=== PATIENT | male | born 1940 | race Caucasian/White ===

== ENCOUNTER 2018-12-25 13:16 | Inpatient (IN) ==
[2018-12-25] MEDS ORDERED: ONDANSETRON INJ 2 MG/ML 2 ML VIAL IV PRN (14:48)
[2018-12-25] MEDS ORDERED: ACETAMINOPHEN 325 MG TAB PO PRN (14:48)
[2018-12-25] MEDS ORDERED: SODIUM CHLORIDE 0.9% 500 ML IV SCH (19:30)
[2018-12-25 19:36] LABS: Hematocrit (blood only) 35.5 % (42-52); Hemoglobin 12.3 g/dL (14.0-18.0); INR 1.1 (0.9-1.1); Mean Corpuscular Hgb Conc 34.6 g/dL (32-36); Mean Corpuscular Volume 89.2 fL (80-100); Mean Platelet Volume 9.4 fL (7.4-10.4); Platelet Count 231 K/uL (130-400); RDW Coefficient of Variation 13.9 % (11.5-14.5); Red Blood Count 3.98 M/uL (4.7-6.1); White Blood Count 6.85 K/uL (4.8-10.8)
[2018-12-25 19:46] LABS: BUN Creatinine Ratio 25.4 (10-20); Calcium 9.3 mg/dl (8.5-10.1); Creatinine Clr Calc Pharmacy 26.2 ml/min; Est GFR (African American) 26.2; Est GFR (Non-African American) 22.6; Potassium 5.6 mmol/L (3.5-5.1)
[2018-12-25] MEDS ORDERED: SODIUM POLYSTYRENE SULFONATE 30 GM/120 ML UDP PO ONE (20:19)
[2018-12-25] MEDS ORDERED: IPRATROPIUM BROMIDE/ALBUTEROL respimat INH INH PRN (21:02)
--- NOTE | 2018-12-25 21:02 | History & Physical Report ---
Date of Service December 25, 2018 Assessment & Plan (1) Hyperkalemia: Patient hyperkalemia is likely based on his RATNA inhibitor spironolactone diuretic therapy. His medications suggest he has a component of heart failure were unclear whether systolic or diastolic. Subsequently we will treat his hyperkalemia with Kayexalate as it was repeated 5.6 there is no acute currents or changes on EKG that would suggest he is having any cardiac related issues nor does he have any arrhythmia. His blood pressure slightly low and will be given 500 cc of fluid overnight. We will repeat potassium in the morning. If his potassium is sluggish has been and creatinine are sluggish to improve we can consider doing a renal ultrasound to look for extrinsic renal issues however this is likely medicine related (2) Hypertension: As mentioned RATNA inhibitor and diuretics are being held at this time, will continue aspirin and Plavix his blood pressure is low so we will not add any augmented blood pressure (3) Chronic obstructive pulmonary disease: Patient suffers of COPD he does not use oxygen he seems to be stable at this point in time. Continue supplement oxygen and use inhaled medicines as needed (4) History of heart artery stent: Patient is maintained on aspirin and Plavix. He typically takes atenolol although his heart rate is slightly bradycardic at this time. He also takes Ranexa but his blood pressure is low these are all being held History of Present Illness Primary Care Provider: Luis Manuel Nichols Patient is a transfer from [address] [place] [address] because of hyperkalemia in the ER. According to the ER physician the patient did not have any acid-base balance is other than the hyperkalemia he did slightly worsening of his creatinine he had no problems with volume control such as heart failure or peripheral edema is oxygenating well and in no acute current of injury on his EKG. According to the ER provider the hospitalist there did not wish to admit the patient to the facility due to lack of nephrology coverage over the weekend I informed the ER provider that I was not even sure I would need nephrology coverage to manage this patient however he says he had no other options as the hospital is a do [facility] were refusing to admit this patient I asked the ER provider to administer the typical hyperkalemia work-up treatment however upon arrival the patient does not feel he received any Kayexalate orally Potassium on presentation in our facility was 5.6 Patient himself says he feels well he only presented to the hospital because of outpatient labs drawn by his primary care provider Allergies Allergy/AdvReac Type Severity Reaction Status Date / Time No Known Allergies Allergy Unverified 04/11/16 11:31 Home Medications Home Medications Medication Instructions Recorded Confirmed Type ASPIRIN (ASPIRIN 81) 1 tab PO DAILY #0 04/11/16 History Atenolol (Tenormin) 25 mg PO DAILY #0 tab 04/11/16 History Clopidogrel (Plavix) 75 mg PO DAILY #0 tab 04/11/16 History Escitalopram Oxalate (Lexapro) 20 mg PO DAILY #0 tab 04/11/16 History Fish Oil ([place]-3) 2 cap PO DAILY #0 cap 04/11/16 History Furosemide (Lasix) 40 mg PO DAILY #0 tab 04/11/16 History Lisinopril (Zestril) 5 mg PO DAILY #0 tab 04/11/16 History Nitroglycerin (Nitrostat) 0.4 mg UT PRN PRN #0 btl 04/11/16 History RANOLAZINE (RANEXA) 1 tab PO BID 90 Days #180 tab 04/11/16 History Simvastatin (Zocor) 20 mg PO QPM #0 tab 04/11/16 History Past Med/Surg History Medical History Anxiety Carotid artery stenosis Chronic kidney disease Congestive heart failure GERD (gastroesophageal reflux disease) Hearing deficit Hyperlipidemia Myocardial Infarction On home oxygen therapy Osteoarthritis Valvular heart disease Surgical History History of cardiac cath S/P trigger finger release Social History Preferred Language: Tajik Communication Ability: Effective Fuse Cutter Required: No Beliefs That Will Affect Care: None Current Living Situation: Spouse Other Information That Helps Us Care for You: No Feels Safe at Home: Yes Safety Concerns: Feels Safe At This Time Smoking Status: Former smoker Hx Alcohol Use: No Hx Substance Use: No Review of Systems Review of Systems: ROS: well nourished well developed. No double vision blurry vision No problems with speech or swallowing No palpitations, chest pain or pressure No Wheezing or breathing issues No abdominal pain nausea vomiting diarrhea changes in appetite or weight No burning urine urine frequency or changes in color No focal joint pain or muscle pain No skin rashes or oral lesions No unusual bruising or bleeding No focused back pain or numbness or loss of strength No changes in memory or confusion Physical Exam Physical Exam: The patient appeared well nourished and normally developed. Vital signs as documented. Head exam is unremarkable. normocephalic, atraumatic Neck is without jugular venous distension, thyromegaly, or lymphademopathy Lungs are clear to auscultation and percussion. Cardiac exam reveals Rhythm is regular. Although he is in atrial fibrillation systolic ejection murmur is heard Abdominal exam reveals normal bowel sounds, no masses, no organomegaly Extremities are nonedematous and both pedal pulses are present Neurologic exam is A&Ox3, no focal deficits, strength is equal bilateral Psychologically seems neither anxious or depressed Skin is warm Dry without bruises or lesions Results & Data Vital Signs (Past 12 Hours) Vital Signs Temp Pulse Resp BP Pulse Ox 12/25/18 19:08 36.6 C 56 L 20 88/50 L 92 12/25/18 18:35 36.5 C 58 L 18 97/51 L 96
[2018-12-25] MEDS ORDERED: SODIUM POLYSTYRENE SULFONATE 15G/60ML SUSP PO ONE (21:30)
[2018-12-25] MEDS: HEPARIN SOD 5,000 UNIT/0.5 ML VIAL SQ SCH (21:41)
[2018-12-26 06:33] LABS: Creatinine Clr Calc Pharmacy 26.1 ml/min; Est GFR (African American) 26.1; Est GFR (Non-African American) 22.5
[2018-12-26] MEDS ORDERED: SODIUM POLYSTYRENE SULFONATE 15G/60ML SUSP PO STA (06:53)
[2018-12-26] MEDS: ASPIRIN 81 MG ECTAB PO SCH (08:03)
[2018-12-26] MEDS: ESCITALOPRAM OXALATE 20 MG TAB PO SCH (08:03)
[2018-12-26] MEDS: CLOPIDOGREL BISULFATE 75 MG TAB PO SCH (08:03)
[2018-12-26] MEDS: HEPARIN SOD 5,000 UNIT/0.5 ML VIAL SQ SCH ×2 (08:03→20:22)
--- NOTE | 2018-12-26 10:51 | Family Medicine Progress Note ---
Date of Service December 26, 2018 Assessment & Plan (1) Hyperkalemia: Hyperkalemia * Patient with hyperkalemia 5.6 on admission down to 4.7 this afternoon. * Most likely due to aldosterone inhibition by spironolactone * Holding spironolactone and lisinopril * Received kayexalate on arrival, will hold further [place]ol[place] exalate * Will recheck BMP tomrrow morning. Acute kidney injury * Creatinine of 2.41 today, uknown what his baseline creatinine is * holding lisinopril, spironolactone and lasix for now * Called [facility] unable to obtain records until office hours on Friday. CHF * Patient with brittle CHF, hospitalized two weeks ago for CHF exacerbation with fluid overload * Will monitor carefully and diurese if patient begins to show signs of fluid overload * appears euvolemic at this time. (2) Hypertension: (3) History of heart artery stent: (4) Acute bronchitis: (5) Chronic obstructive pulmonary disease: Supervising Physician Co-Signing Physician Notes I personally examined the patient and verified all rubin points of history and exam, discussed case, and agree with decision making with Dr Hubbard. Feeling okay. Is starting to have bowel movements related to the Kayexalate. Updated patient and family extensively, to the best my ability, and to their satisfaction. Vitals noted, in general he is awake and alert pleasant no distress. HEENT normocephalic atraumatic mucous membranes moist. Breathing is unlabored no accessory muscle use good effort. Skin shows no rashes no pallor or icterus. Hyperkalemiaseems most likely spironolactone plus or minus effect of lisinopril. Until old labs arrive cannot entirely rule out volume contraction related to the Lasix contributing, but he appears euvolemic not very dry. Kayexalate seems to be helping, I anticipate his K to be improving. Given that he did have extremely mild peaked T waves on EKG, we will repeat a potassium this evening to ensure it is trending in the right direction. Congestive heart failureby history it sounds like chronic systolic, but not clear. Asked for his last hospital discharge summary. Obviously we will need to have the spironolactone on hold, and we may need to have his PCP/primary cognos bi administrator work on what the replacement would be, but if records are obtainable, then we may be able to make recommendations such as increasing the lisinopril, initiating Entresto, or other. Currently we will continue to watch carefully, if he starts to show any signs or symptoms of volume overload/pulmonary edema we can certainly initiate Lasix. Elevated creatinineuncertain if this is his baseline or a new elevation related to his suggested congestive heart failure medicines. We asked for records from [facility]. Certainly he appears euvolemic so there is no emergency to management even if his creatinine is deflected from his baseline. otherwise as above Subjective Mr. Chavez is feeling well this morning, he has no shortness of breath outside of his usual and is on his home level of supplemental oxygen. He is anxious to leave the hospital as soon as possible. Talked with as well, she is very anxious and appears to be on edge of tears. She tells me they were just in hospital recently for a CHF exacerbation and that he had never had an issue with potassium before to her knowledge. Review of Systems Constitutional: no fever, no chills and no fatigue Respiratory: no cough, no dyspnea and no wheezing Cardiovascular: no chest pain, no dyspnea, no dyspnea on exertion, no palpitations, no lightheadedness, no syncope and no calf pain Gastrointestinal: no abdominal pain, no nausea and no vomiting Musculoskeletal: no back pain, no neck pain, no joint pain and no muscle weakness Neurologic: no falls and no localized weakness Physical Exam Constitutional: no acute distress, not ill appearing and no altered mental status Eyes: PERRL, conjunctivae normal, anicteric sclerae ENMT: external ear and nose normal, oropharynx normal Neck: normal visual inspection Respiratory: normal respiratory effort, lungs clear to auscultation Auscultation: no crackles, no rales, no rhonchi and no wheezes Cardiovascular: Rate/Rhythm: regular rate and regular rhythm Vessels: normal peripheral pulses Extremities: no calf tenderness and no edema Gastrointestinal (Abdomen): normal bowel sounds, soft, nontender, no hepatosplenomegaly Neurologic: PERRL, EOMI, accommodation nl, no face palsy, no dysarthria Results & Data Vital Signs (Past 12 Hours) Vital Signs Temp Pulse Pulse Resp BP BP Pulse Ox 12/26/18 08:00 55 L 12/26/18 07:07 36.6 C 60 18 103/51 L 96 05/04/19 03:39 36.9 C 63 18 88/49 L 97 12/25/18 22:55 36.7 C 55 L 18 86/49 L 95 Resident Activity Tracking Resident Involvement: Resident Care Provided Care Provided: Adult Hospital Medicine
[2018-12-26] MEDS ORDERED: AMBRISENTAN PO SCH (13:00)
[2018-12-26 16:26] LABS: BUN Creatinine Ratio 27.2 (10-20); Calcium 8.7 mg/dl (8.5-10.1); Creatinine Clr Calc Pharmacy 28.6 ml/min; Est GFR (African American) 29.1; Est GFR (Non-African American) 25.1; Potassium 4.7 mmol/L (3.5-5.1)
[2018-12-27 06:41] LABS: Hematocrit (blood only) 32.7 % (42-52); Hemoglobin 11.2 g/dL (14.0-18.0); Mean Corpuscular Hgb Conc 34.3 g/dL (32-36); Mean Corpuscular Volume 89.6 fL (80-100); Mean Platelet Volume 9.8 fL (7.4-10.4); Platelet Count 186 K/uL (130-400); RDW Standard Deviation 45.1 fL (36.4-46.3); Red Blood Count 3.65 M/uL (4.7-6.1); White Blood Count 4.79 K/uL (4.8-10.8)
[2018-12-27 07:18] LABS: Calcium 8.5 mg/dl (8.5-10.1); Creatinine Clr Calc Pharmacy 36.1 ml/min; Est GFR (African American) 38.6; Est GFR (Non-African American) 33.3; Potassium 4.3 mmol/L (3.5-5.1)
[2018-12-27] MEDS: HEPARIN SOD 5,000 UNIT/0.5 ML VIAL SQ SCH (07:56)
[2018-12-27] MEDS: ASPIRIN 81 MG ECTAB PO SCH (07:59)
[2018-12-27] MEDS: CLOPIDOGREL BISULFATE 75 MG TAB PO SCH (08:00)
[2018-12-27] MEDS: ESCITALOPRAM OXALATE 20 MG TAB PO SCH (08:00)
--- NOTE | 2018-12-27 17:39 | Discharge Summary ---
Date of Service December 27, 2018 Admission HPI Per Admitting Provider Patient is a transfer from [facility] because of hyperkalemia in the ER. According to the ER physician the patient did not have any acid-base balance is other than the hyperkalemia he did slightly worsening of his creatinine he had no problems with volume control such as heart failure or peripheral edema is oxygenating well and in no acute current of injury on his EKG. According to the ER provider the hospitalist there did not wish to admit the patient to the facility due to lack of nephrology coverage over the weekend I informed the ER provider that I was not even sure I would need nephrology coverage to manage this patient however he says he had no other options as the hospital is a [facility] were refusing to admit this patient I asked the ER provider to administer the typical hyperkalemia work-up treatment however upon arrival the patient does not feel he received any Kayexalate orally Potassium on presentation in our facility was 5.6 Patient himself says he feels well he only presented to the hospital because of outpatient labs drawn by his primary care provider Principal Diagnosis hyperkalemia Discharge Exam Constitutional no acute distress, not ill appearing and no altered mental status Eyes PERRL, conjunctivae normal, anicteric sclerae ENMT external ear and nose normal, oropharynx normal Neck normal visual inspection Respiratory normal respiratory effort, lungs clear to auscultation Auscultation: no crackles, no rales, no rhonchi and no wheezes Cardiovascular Rate/Rhythm: regular rate and regular rhythm Vessels: normal peripheral pulses Extremities: no calf tenderness and no edema Gastrointestinal (Abdomen) normal bowel sounds, soft, nontender, no hepatosplenomegaly Neurologic PERRL, EOMI, accommodation nl, no face palsy, no dysarthria Discharge Data Allergies Allergy/AdvReac Type Severity Reaction Status Date / Time No Known Allergies Allergy Unverified 04/11/16 11:31 Consultations 12/25/18 14:49 Consult Case Management - Discharge Planning Routine 12/26/18 11:44 Consult Health Information Management Routine 12/27/18 12:36 Consult [facility] collection development librarian Routine Hospital Course (1) Hyperkalemia: Hyperkalemia * Patient with hyperkalemia 5.6 on admission down to 4.7 this afternoon. * Most likely due to aldosterone inhibition by spironolactone * Holding spironolactone and lisinopril * Received kayexalate on arrival, will hold further [place] exalate * Will recheck BMP tomrrow morning. Acute kidney injury * Creatinine of 2.41 today, uknown what his baseline creatinine is * holding lisinopril, spironolactone and lasix for now * Called [facility] unable to obtain records until office hours on Friday. CHF * Patient with brittle CHF, hospitalized two weeks ago for CHF exacerbation with fluid overload * Will monitor carefully and diurese if patient begins to show signs of fluid overload * appears euvolemic at this time. (2) Hypertension: (3) History of heart artery stent: (4) Acute bronchitis: (5) Chronic obstructive pulmonary disease: Total Time Total Time Spent Total Time Spent (In Minutes): >30 Discharge Plan Discharge Items Patient Disposition: Home - Self-Care Reason For Visit: HYPERKALEMIA Discharge Diagnosis: Hyperkalemia (Resolved) Congestive Heart Failure Condition: Good Discharge Goals: Improve disease control Activity: Resume your previous activity Non-emergency contact: Primary Care Provider Call non-emergency contact if: you have any medication questions and your symptoms worsen Follow-up/Referrals: Luis Manuel Nichols [Primary Care Provider] - Diet: Heart Healthy Add Provider Instructions: Mr. Chavez, it was our pleasure to treat you here at [facility] for your hyperkalemia ( High Potassium). We believe the cause of your high potassium was a medication that you are on for your heart, spironolactone. We held that medication while you were here in the hospital and watched you closely while your potassium returned to normal. We also held your lisinopril (blood pressure medication) while you were here because it can also affect kidney function and your blood pressure was well controlled (even on the lower end). We also held your lasix (furosemide, fluid pill) because you were a little bit dry. We will want you to follow up early next week with Dr. Nichols for further monitoring of your blood pressure and fluid status. In the mean time we will make the following changes: LASIX (FUROSEMIDE) Decreasing from 40 mg daily down to 20 mg daily (1/2 pill) SPIRONOLACTONE: STOP TAKING LISINOPRIL: STOP TAKING UNTIL MEETING WITH DR. NICHOLS To prevent future chf exacerbations or becoming fluid overloaded it would be in your best interest to consume less than 2000mg of sodium per day. This information can be found on any packaged food. Things like soup and preserved meats can have very high sodium levels. Try to avoid more than 400 mg in a single meal. Prescriptions: Continued ASPIRIN (ASPIRIN 81) 81 MG tablet 1 tab PO DAILY Qty: 0 RF: 0 Atenolol (Tenormin) 50 MG tablet 25 mg PO DAILY Qty: 0 RF: 0 Clopidogrel (Plavix) 75 MG tablet 75 mg PO DAILY Qty: 0 RF: 0 Escitalopram Oxalate (Lexapro) 20 MG tablet 20 mg PO DAILY Qty: 0 RF: 0 Fish Oil ([place]-3) 1 EA capsule 2 cap PO DAILY Qty: 0 RF: 0 Nitroglycerin (Nitrostat) 0.4 MG tablet 0.4 mg UT PRN PRN (Reason: Chest Pain) Qty: 0 RF: 0 RANOLAZINE (RANEXA) 500 MG tablet 1 tab PO BID 90 Days Qty: 180 RF: 3 Simvastatin (Zocor) 20 MG tablet 20 mg PO QPM Qty: 0 RF: 0 Changed Furosemide (Lasix) 40 MG tablet 20 mg PO DAILY Qty: 0 RF: 0 Discontinued Lisinopril (Zestril) 5 MG tablet 5 mg PO DAILY Qty: 0 RF: 0 Stand-Alone Forms: [facility] [facility]/Other Patient Handouts: Heart Failure Warning Signs, Heart Failure Tracking Weight, Heart Failure Being Active, Heart Failure Coping, Heart Failure Diet Changes Discharge Orders: Discharge Order (Routine); Ordered 12/27/18 Ordered By: Lv Hubbard Admission Data Admit Date/Time: 12/25/18 17:48 Attending Provider: Tyler Lanier Admit Provider: Peter English Primary Care Provider: Luis Manuel Nichols Other Providers: Peter English Service: Telemetry Other Interventions: Discharge Summary Assessment (RN) Last Done: 12/27/18 13:09 Pending Studies at Discharge: No DC Date/Time DO NOT enter until pt leaves facility: 12/27/18 13:21 Supervising Physician Co-Signing Physician Notes I personally examined the patient and verified all rubin points of history and exam, discussed case, and agree with decision making with Dr Hubbard. Feeling good. Breathing okay. Would like to go home. Extensive discussions about not only hyperkalemia, but also CHF including home monitoring (Daily weights and following respiratory symptoms) and prevention of exacerbation specifically focusing on sodium restriction. He seemed entirely unaware of any of this. Was quite appreciative of the information. Vitals noted, in general he is awake and alert pleasant no distress. HEENT normocephalic atraumatic mucous members moist. Lungs show very faint bibasilar rales probably more right than left at the bottom only, lungs are otherwise clear without any other rales rhonchi or wheezes good effort no accessory muscle use. Labs noted Hyperkalemiaseems most likely spironolactone plus or minus effect of lisinopril. Given the improvement of his creatinine after a little bit of IV fluid and holding off on Lasix, he also likely had a degree of volume contraction. Now stable for home. Continue to withhold spironolactone and lisinopril for now, likely spironolactone indefinitely, outpatient follow-up with his PCP and template inspector. Records did not arrive in terms of his type of congestive heart failure, so specific recommendations could not be made on replacing the spironolactone, but assuming he has a low EF, one could consider discontinuing the lisinopril as well and utilizing sacubitril/valsartan. Congestive heart failuresee above. Clinically overall stable, very faint rales, but otherwise appears to be a bit volume contracted. Records did not arrive but he does appear stable for home. In the interest of being able to discharge him safely without a full complement of information, we had an extensive discussion that he appears to be on the dry side overall, but has an uncertain baseline of brittleness, and with his spironolactone and lisinopril currently on hold, we did not want him to suffer a decompensation of CHF. In that respect, we will have him take 20 mg of Lasix for now, and have follow-up with his PCP in 48 to 72 hours, with a basic metabolic panel then. As above noted we had discussions on monitoring of CHF at home, and if he has any worsening we would want him seen sooner than that. Elevated creatinineuncertain baseline, but improving. Follow-up basic metabolic panel in 48 to 72 hours as above noted. Otherwise as above
== END 2018-12-27 13:21 | disposition home or self-care (01) | DRG 641 ==
LOC: 2E 17:48 → SUATTDRO 17:48